=== PATIENT | female | born 1955 | race Caucasian/White ===

== ENCOUNTER 2017-02-25 10:08 | Emergency (ER) | payer SELFPAY ==
[2017-02-25] MEDS ORDERED: NS 1,000 ML IV ONE (10:40)
[2017-02-25] MEDS ORDERED: ONDANSETRON 4 MG/2 ML VIAL IVP ONE (10:40)
--- NOTE | 2017-02-25 10:45 | EDPHY ---
H & P Time Seen by Provider: 02/25/17 10:30 HPI/ROS: CHIEF COMPLAINT: Abdominal pain HISTORY OF PRESENT ILLNESS: Patient is a 61-year-old female with a history of IBS who presents emergency department with ongoing left-sided abdominal pain. She states her IBS is normally waxing and waning in only lasts for short period of time. At 2:00 a.m. she developed left upper quadrant pain. Is gradually progressed. It is now severe. It does not radiate. She has had nausea with no vomiting. No diarrhea. No fevers or chills. No dysuria or frequency. REVIEW OF SYSTEMS: My complete review of systems is negative except as mentioned in the HPI. Past Medical/Surgical History: Includes IBS Past surgical history: Oophorectomy, cholecystectomy, spinal fusion Social history: The patient smokes. She denies alcohol Smoking Status: Current every day smoker Physical Exam: 36.5, 174/132, 93, 20, 97% on room GENERAL: Well-appearing, in no acute distress, alert. HEENT: Eyes normal to inspection, normal pharynx, no signs of dehydration. NECK: No thyromegaly, no lymphadenopathy, supple. RESPIRATORY: Clear to auscultation bilaterally, no rales, rhonchi or wheezing. CVS: Regular rate and rhythm, no rubs, murmurs, or gallops. ABDOMEN: Soft, left mid and left lower quadrant tenderness palpation with no rebound or guarding, nondistended, no organomegaly. BACK: Normal to inspection, no CVA tenderness. SKIN: Normal color, no rash, warm, dry. No pallor. EXTREMITIES: No pedal edema, no calf tenderness, no Homans sign or cords, no joint swelling. NEURO/PSYCH: Alert and oriented, normal mood and affect, normal motor sensory exam. Constitutional: Initial Vital Signs Temperature (C) 36.5 C 02/25/17 10:11 Heart Rate 93 02/25/17 10:11 Respiratory Rate 20 02/25/17 10:11 Blood Pressure 174/132 H 02/25/17 10:11 O2 Sat (%) 97 02/25/17 10:11 O2 Delivery Mode Room Air Allergies/Adverse Reactions: acetaminophen [From Tylenol] Allergy (Verified 02/25/17 10:10) tramadol [From Ultram] Allergy (Verified 02/25/17 10:10) Home Medications: Medication Instructions Recorded Hydrocodone/APAP 5/325 [[place] 1 - 2 tab PO Q4 #13 tab 02/25/17 5/325 (RX)] Ondansetron Odt [Zofran Odt 4 mg 4 mg PO Q4PRN PRN #7 tab 02/25/17 (*)] Medical Decision Making - Diagnostics Imaging Results: Imaging Impressions Abdomen CT 02/25/17 10:42 Impression: 1. Query gastritis. No evidence of bowel perforation or obstruction. 2. Normal appendix. 3. No intra-abdominal mass or lymphadenopathy. 4. Minimal biliary dilation is likely patient's postcholecystectomy baseline. Findings discussed with Emergency Department physician, Ivett Jordan on , 12:00 p.m. ED Course/Re-evaluation: In the emergency department I discussed possible etiologies with the patient. I answered all her questions. IV was placed. She was given normal saline 1 L IV for hydration. She is given morphine 4 mg IV for pain control and hypertension. She is given Zofran 4 mg IV for nausea. I reviewed the patient's laboratory studies. Her white count was normal. She is not anemic. Patient's chemistry panel was unremarkable. LFTs and lipase were normal. UA showed 3-5 red cells with no other abnormalities Abdominal pelvis CT with IV contrast: Please refer the dictated report. I discussed case with the radiologist. She may have mild gastritis on CT. I discussed the results with the patient. On re-examination she was lying comfortably in bed. Abdomen was soft, nontender nondistended. There is no rebound or guarding. Patient was given warnings prior to leaving. She will return with worsening symptoms. Differential Diagnosis: My differential includes but is not limited to small-bowel obstruction, perforation, diverticulitis, abscess, splenic disease, intussusception, volvulus , urinary tract infection, pyelonephritis - Data Points Laboratory Results: Laboratory Results 02/25/17 10:30 02/25/17 10:30 02/25/17 02/25/17 02/25/17 10:40 10:30 10:30 WBC RBC Hgb Hct MCV MCH MCHC RDW Plt Count MPV Neut % (Auto) Lymph % (Auto) [place] % (Auto) Eos % (Auto) Baso % (Auto) Nucleat RBC Rel Count Absolute Neuts (auto) Absolute Lymphs (auto) Absolute Monos (auto) Absolute Eos (auto) Absolute Basos (auto) Absolute Nucleated RBC Immature Gran % Immature Gran # PT 12.1 SEC SEC (12.0-15.0) INR 0.91 (0.83-1.16) APTT 31.4 SEC SEC (23.0-38.0) Sodium 140 mEq/L mEq/L (134-144) Potassium 3.7 mEq/L mEq/L (3.5-5.2) Chloride 107 mEq/L mEq/L (97-110) Carbon Dioxide 21 mEq/l L mEq/l (22-31) Anion Gap 12 mEq/L mEq/L (8-16) BUN 12 mg/dL mg/dL (7-23) Creatinine 0.7 mg/dL mg/dL (0.6-1.0) Estimated GFR > 60 Glucose 94 mg/dL mg/dL (70-100) Calcium 10.4 mg/dL mg/dL (8.5-10.4) Total Bilirubin 0.6 mg/dL mg/dL (0.1-1.4) Conjugated Bilirubin 0.3 mg/dL mg/dL (0.0-0.5) Unconjugated Bilirubin 0.3 mg/dL mg/dL (0.0-1.1) AST 27 IU/L IU/L (14-46) ALT 29 IU/L IU/L (9-52) Alkaline Phosphatase 90 IU/L IU/L (38-126) Total Protein 7.0 g/dL g/dL (6.3-8.2) Albumin 4.6 g/dL g/dL (3.5-5.0) Lipase 78 IU/L IU/L (23-300) Urine Color PALE YELLOW Urine Appearance HAZY Urine pH 6.0 (5.0-7.5) Ur Specific [place] 1.008 (1.002-1.030) Urine Protein NEGATIVE (NEGATIVE) Urine Ketones NEGATIVE (NEGATIVE) Urine Blood 2+ H (NEGATIVE) Urine Nitrate NEGATIVE (NEGATIVE) Urine Bilirubin NEGATIVE (NEGATIVE) Urine Urobilinogen NEGATIVE EU EU (0.2-1.0) Ur Leukocyte Esterase NEGATIVE (NEGATIVE) Urine RBC 3-5 /hpf H /hpf (0-3) Urine WBC NONE SEEN /hpf /hpf (0-3) Ur Epithelial Cells TRACE /lpf /lpf (NONE-1+) Urine Mucus TRACE /lpf /lpf (NONE-1+) Urine Glucose NEGATIVE (NEGATIVE) 02/25/17 10:30 WBC 5.11 10^3/uL 10^3/uL (3.80-9.50) RBC 5.33 10^6/uL 10^6/uL (4.18-5.33) Hgb 17.8 g/dL H g/dL (12.6-16.3) Hct 50.1 % H % (38.0-47.0) MCV 94.0 fL fL (81.5-99.8) MCH 33.4 pg pg (27.9-34.1) MCHC 35.5 g/dL g/dL (32.4-36.7) RDW 11.9 % % (11.5-15.2) Plt Count 225 10^3/uL 10^3/uL (150-400) MPV 9.0 fL fL (8.7-11.7) Neut % (Auto) 57.9 % % (39.3-74.2) Lymph % (Auto) 32.7 % % (15.0-45.0) [place] % (Auto) 6.8 % % (4.5-13.0) Eos % (Auto) 1.0 % % (0.6-7.6) Baso % (Auto) 1.4 % % (0.3-1.7) Nucleat RBC Rel Count 0.0 % % (0.0-0.2) Absolute Neuts (auto) 2.96 10^3/uL 10^3/uL (1.70-6.50) Absolute Lymphs (auto) 1.67 10^3/uL 10^3/uL (1.00-3.00) Absolute Monos (auto) 0.35 10^3/uL 10^3/uL (0.30-0.80) Absolute Eos (auto) 0.05 10^3/uL 10^3/uL (0.03-0.40) Absolute Basos (auto) 0.07 10^3/uL 10^3/uL (0.02-0.10) Absolute Nucleated RBC 0.00 10^3/uL 10^3/uL (0-0.01) Immature Gran % 0.2 % % (0.0-1.1) Immature Gran # 0.01 10^3/uL 10^3/uL (0.00-0.10) PT INR APTT Sodium Potassium Chloride Carbon Dioxide Anion Gap BUN Creatinine Estimated GFR Glucose Calcium Total Bilirubin Conjugated Bilirubin Unconjugated Bilirubin AST ALT Alkaline Phosphatase Total Protein Albumin Lipase Urine Color Urine Appearance Urine pH Ur Specific [place] Urine Protein Urine Ketones Urine Blood Urine Nitrate Urine Bilirubin Urine Urobilinogen Ur Leukocyte Esterase Urine RBC Urine WBC Ur Epithelial Cells Urine Mucus Urine Glucose Medications Given: Discontinued Medications Sodium Chloride (Ns) 1,000 mls @ 0 mls/hr IV EDNOW ONE; Wide Open PRN Reason: Protocol Stop: 02/25/17 10:41 Last Admin: 02/25/17 10:46 Dose: 1,000 mls Morphine Sulfate (Morphine) 4 mg IVP EDNOW ONE Stop: 02/25/17 10:41 Last Admin: 02/25/17 10:46 Dose: 4 mg Ondansetron HCl (Zofran) 4 mg IVP EDNOW ONE Stop: 02/25/17 10:41 Last Admin: 02/25/17 10:46 Dose: 4 mg Departure - Departure Disposition: Home, Routine, Self-Care Clinical Impression: Abdominal pain Qualifiers: Abdominal location: left upper quadrant Qualified Code(s): R10.12 - Left upper quadrant pain Condition: Good Instructions: Abdominal Pain (ED) Additional Instructions: Your laboratory studies were unremarkable. Your CT scan showed mild gastritis with no other abnormalities. Return with increasing pain, fever, vomiting or any other concerns. Referrals: Kanchan Schneider, [Doctor of Osteopathy] - 2-3 days, if not improved Prescriptions: Hydrocodone/APAP 5/325 [[place] 5/325 (RX)] 1 - 2 tab PO Q4 #13 tab Ondansetron Odt [Zofran Odt 4 mg (*)] 4 mg PO Q4PRN PRN #7 tab PRN Reason: For Nausea & Vomiting
[2017-02-25 10:49] LABS: % IMMATURE GRANULYOCYTES 0.2 % (0.0-1.1); ABSOLUTE IMMATURE GRANULOCYTES 0.01 10^3/uL (0.00-0.10); ADD DIFF? NO; ADD MORPH? NO; ADD SCAN? NO; ATYPICAL LYMPHOCYTE FLAG 10 (0-99); FRAGMENT RBC FLAG 0 (0-99); HEMATOCRIT 50.1 % (38.0-47.0); HEMOGLOBIN 17.8 g/dL (12.6-16.3); LEFT SHIFT FLG 0 (0-99); LIPEMIA HEMOLYSIS FLAG 90 (0-99); MEAN CELL HEMOGLOBIN 33.4 pg (27.9-34.1); MEAN CELL HEMOGLOBIN CONCENTR. 35.5 g/dL (32.4-36.7); PLATELET CLUMPS FLAG 0 (0-99); PLATELET COUNT 225 10^3/uL (150-400); RED BLOOD CELL COUNT 5.33 10^6/uL (4.18-5.33); RED CELL DISTRIBUTION WIDTH 11.9 % (11.5-15.2)
[2017-02-25 10:58] LABS: ALANINE AMINOTRANSFERASE 29 IU/L (9-52); ALBUMIN 4.6 g/dL (3.5-5.0); ALKALINE PHOSPHATASE 90 IU/L (38-126); ANION GAP 12 mEq/L (8-16); ASPARTATE AMINOTRANSFERASE 27 IU/L (14-46); BILIRUBIN,TOTAL 0.6 mg/dL (0.1-1.4); BILIRUBIN-CONJUGATED 0.3 mg/dL (0.0-0.5); BILIRUBIN-UNCONJUGATED 0.3 mg/dL (0.0-1.1); CALCIUM 10.4 mg/dL (8.5-10.4); CARBON DIOXIDE 21 mEq/l (22-31); CHLORIDE 107 mEq/L (97-110); CREATININE 0.7 mg/dL (0.6-1.0); GLOMERULAR FILTRATION RATE > 60; GLUCOSE 94 mg/dL (70-100); POTASSIUM 3.7 mEq/L (3.5-5.2); SODIUM 140 mEq/L (134-144)
[2017-02-25 11:06] LABS: APTT 31.4 SEC (23.0-38.0); INR 0.91 (0.83-1.16); PROTIME(PATIENT) 12.1 SEC (12.0-15.0)
[2017-02-25 11:15] LABS: COLOR PALE YELLOW; LEUKOCYTE ESTERASE,URINE NEGATIVE (NEGATIVE); NITRITE,URINE NEGATIVE (NEGATIVE)
[2017-02-25] MEDS ORDERED: IOPAMIDOL (ISOVUE-300) 100 ML BTL ONE (11:18)
[2017-02-25 11:19] LABS: MUCUS TRACE /lpf (NONE-1+)
[2017-02-25 11:20] LABS: WBC,URINE NONE SEEN /hpf (0-3)
[2017-02-25 11:22] VITALS: RESP 16
[2017-02-25 12:58] VITALS: BP 113/71; PULSE 67; TEMP 97.9; O2SAT 95
== END 2017-02-25 13:02 | disposition home or self-care (01) ==
DX: R10.12 Left upper quadrant pain (principal); F17.200 Nicotine dependence, unspecified, uncomplicated; E86.9 Volume depletion, unspecified; Z90.49 Acquired absence of other specified parts of digestive tract
CPT/HCPCS: 96374; J2405; Q9967

== ENCOUNTER → 2017-03-11 | Outpatient (CLI) | payer MEDICAID | LOC: FIMAGING 12:06 → EDSTATUS 12:07 | PROVIDERS: ATTEND Family Medicine | DX: J44.9 Chronic obstructive pulmonary disease, unspecified (principal) ==

== ENCOUNTER 2018-03-13 08:20 | Emergency (ER) | payer MEDICAID ==
[2018-03-13] MEDS ORDERED: NS 1,000 ML IV ONE (08:36)
[2018-03-13] MEDS ORDERED: KETOROLAC 15 MG/1 ML SDV IVP ONE (08:36)
[2018-03-13] MEDS ORDERED: HALOPERIDOL LACT 5 MG/ML INJ IVP ONE (08:36)
--- NOTE | 2018-03-13 08:37 | EDPHY ---
H & P Stated Complaint: PATEL for 4 days, N/V last night Time Seen by Provider: 03/13/18 08:29 HPI/ROS: Chief Complaint: Headache HPI: 62-year-old woman with a history of migraine headaches has been having a 9 /10 headache for the last 4 days. It is just like her prior headaches. She does have some vision changes in the left lower visual [place] in both eyes consistent with her prior or eyes. Some nausea vomiting. Some photophobia. She has been dehydrated which she believes is contributing to this. No fevers or chills. No neck stiffness. It is not the worst headache of her life. It was gradual in onset. ROS: 10 systems were reviewed and were negative except those elements noted in the HPI. PMH: Migraine headaches, cervical degenerative disc disease Social History: Positive smoking, no alcohol, occasional marijuana Family History: non-contributory Physical Exam: Gen: Awake, Alert, No Distress HEENT: Nose: no rhinorrhea Eyes: PERRLA, EOMI Mouth: Moist mucosa Neck: Supple, no JVD Chest: nontender, lungs clear to auscultation Heart: S1, S2 normal, no murmur Abd: Soft, non-tender, no guarding Back: no CVA tenderness, no midline tenderness Ext: no edema, non-tender Skin: no rash Neuro: CN II-XII intact, Sensation grossly intact, Strength 5/5 in bilateral upper and lower extremities - Medical/Surgical History Hx Asthma: No Hx Chronic Respiratory Disease: No Hx Diabetes: No Hx Cardiac Disease: No Hx Renal Disease: No Hx Cirrhosis: No Hx Alcoholism: No Hx HIV/AIDS: No Hx Splenectomy or Spleen Trauma: No Other PMH: IBS - Social History Smoking Status: Current every day smoker Constitutional: Initial Vital Signs Temperature (C) 36.6 C 03/13/18 08:23 Heart Rate 87 03/13/18 08:23 Respiratory Rate 18 03/13/18 08:23 Blood Pressure 131/90 H 03/13/18 08:23 O2 Sat (%) 96 03/13/18 08:23 O2 Delivery Mode Room Air Allergies/Adverse Reactions: acetaminophen [From Tylenol] Allergy (Verified 03/13/18 08:22) tramadol [From Ultram] Allergy (Verified 03/13/18 08:22) Home Medications: Medication Instructions Recorded NK [No Known Home Meds] 03/13/18 Medical Decision Making ED Course/Re-evaluation: Patient is feeling significantly better after IV fluids, Haldol, Toradol and Benadryl. Headache is a 3/10. She is smiling and much more interactive. Plan will be for discharge with referral for outpatient follow-up. I do not see any evidence of acute intracranial bleed, traumatic injury or infectious process causing her headache at this time. - Data Points Medications Given: Discontinued Medications Diphenhydramine HCl (Benadryl Injection) 25 mg IVP EDNOW ONE Stop: 03/13/18 08:37 Last Admin: 03/13/18 08:54 Dose: 25 mg Haloperidol Lactate (Haldol Injection) 2.5 mg IVP EDNOW ONE Stop: 03/13/18 08:37 Last Admin: 03/13/18 08:54 Dose: 2.5 mg Sodium Chloride (Ns) 1,000 mls @ 0 mls/hr IV ONCE ONE; Wide Open PRN Reason: Protocol Stop: 03/13/18 08:37 Last Admin: 03/13/18 08:56 Dose: 1,000 mls Ketorolac Tromethamine (Toradol) 15 mg IVP EDNOW ONE Stop: 03/13/18 08:37 Last Admin: 03/13/18 08:54 Dose: 15 mg Departure - Departure Disposition: Home, Routine, Self-Care Clinical Impression: Headache Condition: Good Instructions: Acute Headache (ED) Additional Instructions: Follow up with her primary care physician in 3-4 days for further evaluation. Return to the emergency department for increasing headache, nausea vomiting, fevers, chills, or any other concerns. Referrals: Oscar Burns DO [Primary Care Provider] - As per Instructions
[2018-03-13 09:45] VITALS: BP 128/76
== END 2018-03-13 10:05 | disposition home or self-care (01) ==
DX: G43.909 Migraine, unspecified, not intractable, without status migrainosus (principal); E86.9 Volume depletion, unspecified; F17.210 Nicotine dependence, cigarettes, uncomplicated
CPT/HCPCS: 96374; J1200; J1630; J1885

== ENCOUNTER → 2018-03-24 | Outpatient (CLI) | payer MEDICAID | LOC: FIMAGING 11:01 | PROVIDERS: ATTEND Family Medicine | DX: Z12.31 Encounter for screening mammogram for malignant neoplasm of breast (principal); Z13.820 Encounter for screening for osteoporosis; M81.0 Age-related osteoporosis without current pathological fracture ==

== ENCOUNTER → 2018-03-30 | Outpatient (CLI) | payer MEDICAID | LOC: FIMAGING 14:23 | PROVIDERS: ATTEND Family Medicine | DX: Z98.1 Arthrodesis status (principal); M99.13 Subluxation complex (vertebral) of lumbar region ==